=== PATIENT | male | born 1955 | race Caucasian/White ===

== ENCOUNTER 2017-04-28 14:07 | Emergency (ER) | payer OTHER ==
[~2017-04-28] VITALS: Ht 180.3 cm; Wt 79.4 kg
[2017-04-28 14:26] VITALS: BP_SYST 124
[2017-04-28] MEDS ORDERED: KETOROLAC TROMETHAMINE 60 MG/2 ML VIAL IM ONE (15:30)
--- NOTE | 2017-04-28 15:49 | NUR ---
Patient to ER bed H2 to gown for evaluation. Side rails up. Report given to Blanka NASCIMENTO.
--- NOTE | 2017-04-28 15:51 | NUR ---
DEEPA Bowman at bedside examining patient.
--- NOTE | 2017-04-28 15:52 | NUR ---
Note [email or web address] in EDM - 04/28/17 at 1626 by [email or web address] Patient is A & O x 4. Patient reports slipping in shower 4 days ago. complaining of pain to right rib pain. 06/10
--- NOTE | 2017-04-28 15:52 | NUR ---
Patient is A & O x 4. Patient reports slipping in shower 4 days ago. complaining of pain to right rib pain. Pain 10/10, sharp. Denies LOC, SOB or chest pain. No other complaints/injuries per patient or as noted. Will continue to monitor.
[2017-04-28 16:05] VITALS: BP_SYST 124
--- NOTE | 2017-04-28 16:05 | NUR ---
Patient given written and verbal discharge instructions and verbalizes understanding. ER MD discussed with patient the results and treatment provided. Patient in stable condition. ID arm band removed. Rx of Tramadol and ibuprofen given. Patient educated on pain management and to follow up with PMD. Pain Scale 0/10 Opportunity for questions provided and answered.
== END 2017-04-28 16:05 | disposition home or self-care (01) ==
LOC: SED 14:07
DX: S22.41XA Multiple fractures of ribs, right side, initial encounter for closed fracture (principal); F17.210 Nicotine dependence, cigarettes, uncomplicated; R03.0 Elevated blood-pressure reading, without diagnosis of hypertension; Z71.6 Tobacco abuse counseling; W18.2XXA Fall in (into) shower or empty bathtub, initial encounter; Y93.E1 Activity, personal bathing and showering; Y92.091 Bathroom in other non-institutional residence as the place of occurrence of the external cause; Y99.8 Other external cause status
CPT/HCPCS: 71010; 71100; 96372; 99284; J1885

== ENCOUNTER 2018-06-22 14:58 | Inpatient (IN) | payer MEDICAID, OTHER ==
[~2018-06-22] VITALS: Ht 180.3 cm; Wt 86.2 kg
[2018-06-22 15:14] VITALS: BP_SYST 140
[2018-06-22] MEDS ORDERED: CLINDAMYCIN 600 mg/50mL D5W 50 ML IV ONE (16:00)
[2018-06-22] MEDS ORDERED: cefTRIAXone 1 GM IVPB PREMIX 50 ML IV ONE (16:00)
[2018-06-22 16:10] LABS: CALCIUM 9.3 mg/dL (8.4-11.0); CREATININE 0.82 mg/dL (0.55-1.30); POTASSIUM 3.9 mmol/L (3.5-5.1)
[2018-06-22 16:15] LABS: ALBUMIN 3.8 g/dL (3.4-4.8); TOTAL BILIRUBIN 0.4 mg/dL (0.0-1.0)
[2018-06-22] MEDS ORDERED: MORPHINE 4 MG/ML INJ. SYRINGE IVP ONE (16:15)
[2018-06-22 16:20] LABS: BASOPHILS # (AUTO) 0.2 K/uL (0.0-0.2); HEMATOCRIT 47.7 % (36-54); HEMOGLOBIN 16.2 g/dL (14.0-18.0); LYMPHOCYTES # (AUTO) 2.6 K/uL (1.0-5.5); MEAN CORPUSCULAR HEMOGLOBIN 30 pg (27-31); MEAN CORPUSCULAR HGB CONC 34 % (32-36); MEAN CORPUSCULAR VOLUME 89 fL (79.0-98.0); MONOCYTES # (AUTO) 0.7 K/uL (0.0-1.0); MONOCYTES % (AUTO) 7.8 % (1.7-9.3); PLATELET COUNT (AUTO) 250 K/uL (130-430); RED BLOOD CELL COUNT(AUTO) 5.39 MIL/uL (4.2-6.2); RED CELL DISTRIBUTION WIDTH 13.1 % (9.0-15.0); WHITE BLOOD COUNT (AUTO) 9.2 K/uL (4.8-10.8)
[2018-06-22 16:29] LABS: BASOPHILS % (AUTO) 1.7 % (0.0-2.0); LYMPHOCYTES % (AUTO) 27.4 % (20.5-51.5); NEUTROPHILS # (AUTO) 5.6 K/uL (1.8-7.7); NEUTROPHILS % (AUTO) 59.1 % (40.0-70.0)
[2018-06-22 16:30] LABS: EOSINOPHILS # (AUTO) 0.4 K/uL (0.0-0.4)
[2018-06-22] MEDS ORDERED: MORPHINE 2 MG/ML INJ. SYRINGE IVP ONE ×2 (17:00→17:30)
[2018-06-22 19:06] VITALS: BP_SYST 138
[2018-06-22] MEDS ORDERED: VANCOMYCIN HCL 500 MG/VIAL IV ONE (20:05)
[2018-06-22] MEDS ORDERED: VANCOMYCIN HCL 1000 MG/VIAL IV ONE (20:05)
[2018-06-22] MEDS: VANCOMYCIN HCL 1,250 MG in NS 250 ML IV SCH (20:50)
[2018-06-22] MEDS ORDERED: ACETAMINOPHEN 325 MG TABLET PO PRN (22:15)
[2018-06-22] MEDS: MORPHINE 4 MG/ML INJ. SYRINGE IVP PRN (22:32)
[2018-06-23 01:41] VITALS: BP_SYST 119
[2018-06-23] MEDS: MORPHINE 4 MG/ML INJ. SYRINGE IVP PRN ×2 (03:41→21:14)
[2018-06-23 08:00] VITALS: BP_SYST 147
[2018-06-23] MEDS: VANCOMYCIN HCL 1,250 MG in NS 250 ML IV SCH ×2 (09:27→21:04)
[2018-06-23] MEDS: MORPHINE 2 MG/ML INJ. SYRINGE IVP PRN ×2 (10:25→17:17)
[2018-06-23 12:00] VITALS: BP_SYST 146
[2018-06-23 16:00] VITALS: BP_SYST 154
[2018-06-23 19:44] VITALS: BP_SYST 149
[2018-06-24] VITALS (7 sets, daily range): BP systolic 129–161
[2018-06-24] MEDS: MORPHINE 4 MG/ML INJ. SYRINGE IVP PRN ×5 (01:30→21:10)
[2018-06-24] MEDS: VANCOMYCIN HCL 1,250 MG in NS 250 ML IV SCH (08:41)
[2018-06-24] MEDS: CEFEPIME 1 GM in D5W 50 ML IV SCH (20:08)
[2018-06-24] MEDS: VANCOMYCIN HCL 1,500 MG in NS 250 ML IV SCH (20:53)
[2018-06-25] MEDS: MORPHINE 4 MG/ML INJ. SYRINGE IVP PRN ×4 (01:18→16:43)
[2018-06-25 07:57] VITALS: BP_SYST 131
[2018-06-25] MEDS: CEFEPIME 1 GM in D5W 50 ML IV SCH ×2 (09:20→20:01)
[2018-06-25] MEDS: VANCOMYCIN HCL 1,500 MG in NS 250 ML IV SCH ×2 (09:30→20:52)
[2018-06-25 20:00] VITALS: BP_SYST 123
[2018-06-25] MEDS: MORPHINE 2 MG/ML INJ. SYRINGE IVP PRN (20:53)
[2018-06-26 00:31] VITALS: BP_SYST 142
[2018-06-26] MEDS: MORPHINE 4 MG/ML INJ. SYRINGE IVP PRN ×2 (03:52→21:04)
[2018-06-26 08:13] VITALS: BP_SYST 162
[2018-06-26] MEDS: CEFEPIME 1 GM in D5W 50 ML IV SCH ×2 (08:31→20:40)
[2018-06-26] MEDS: VANCOMYCIN HCL 1,500 MG in NS 250 ML IV SCH ×2 (09:22→22:04)
[2018-06-26 12:32] VITALS: BP_SYST 105
[2018-06-26] MEDS: MORPHINE 2 MG/ML INJ. SYRINGE IVP PRN (16:20)
[2018-06-26 17:01] VITALS: BP_SYST 149
[2018-06-26 20:00] VITALS: BP_SYST 130
[2018-06-27] VITALS (7 sets, daily range): BP systolic 109–140
[2018-06-27] MEDS: MORPHINE 2 MG/ML INJ. SYRINGE IVP PRN (00:02)
[2018-06-27] MEDS: MORPHINE 4 MG/ML INJ. SYRINGE IVP PRN ×5 (03:41→21:15)
[2018-06-27 07:19] LABS: CALCIUM 9.4 mg/dL (8.4-11.0); CREATININE 0.81 mg/dL (0.55-1.30); VANCOMYCIN,TROUGH 15.5 ug/mL (5.0-10.0)
[2018-06-27] MEDS: VANCOMYCIN HCL 1,500 MG in NS 250 ML IV SCH ×2 (08:35→21:13)
[2018-06-27] MEDS: CEFEPIME 1 GM in D5W 50 ML IV SCH ×2 (10:18→20:23)
[2018-06-28] MEDS: MORPHINE 4 MG/ML INJ. SYRINGE IVP PRN ×5 (03:09→21:43)
[2018-06-28 05:36] LABS: BASOPHILS # (AUTO) 0.1 K/uL (0.0-0.2); BASOPHILS % (AUTO) 0.8 % (0.0-2.0); EOSINOPHILS # (AUTO) 0.5 K/uL (0.0-0.4); EOSINOPHILS % (AUTO) 4.5 % (0.0-4.0); HEMATOCRIT 53.2 % (36-54); HEMOGLOBIN 17.5 g/dL (14.0-18.0); LYMPHOCYTES # (AUTO) 3.1 K/uL (1.0-5.5); LYMPHOCYTES % (AUTO) 30.6 % (20.5-51.5); MEAN CORPUSCULAR HEMOGLOBIN 30 pg (27-31); MEAN CORPUSCULAR HGB CONC 33 % (32-36); MEAN CORPUSCULAR VOLUME 91 fL (79.0-98.0); MONOCYTES # (AUTO) 1.1 K/uL (0.0-1.0); MONOCYTES % (AUTO) 10.4 % (1.7-9.3); NEUTROPHILS # (AUTO) 5.4 K/uL (1.8-7.7); NEUTROPHILS % (AUTO) 53.7 % (40.0-70.0); PLATELET COUNT (AUTO) 258 K/uL (130-430); RED BLOOD CELL COUNT(AUTO) 5.82 MIL/uL (4.2-6.2); RED CELL DISTRIBUTION WIDTH 12.8 % (9.0-15.0); WHITE BLOOD COUNT (AUTO) 10.2 K/uL (4.8-10.8)
[2018-06-28 05:59] LABS: ALBUMIN 3.9 g/dL (3.4-4.8); CALCIUM 9.6 mg/dL (8.4-11.0); CREATININE 0.85 mg/dL (0.55-1.30); TOTAL BILIRUBIN 0.7 mg/dL (0.0-1.0)
[2018-06-28 08:00] VITALS: BP_SYST 131
[2018-06-28] MEDS: CEFEPIME 1 GM in D5W 50 ML IV SCH ×2 (08:04→20:18)
[2018-06-28] MEDS: VANCOMYCIN HCL 1,500 MG in NS 250 ML IV SCH ×2 (09:01→21:42)
[2018-06-28 12:13] VITALS: BP_SYST 146
[2018-06-28 16:03] VITALS: BP_SYST 109
[2018-06-28 20:00] VITALS: BP_SYST 135
[2018-06-28] MEDS: MORPHINE 2 MG/ML INJ. SYRINGE IVP PRN (23:52)
[2018-06-29 01:45] VITALS: BP_SYST 109
[2018-06-29] MEDS: MORPHINE 4 MG/ML INJ. SYRINGE IVP PRN ×4 (05:34→20:15)
[2018-06-29 08:02] VITALS: BP_SYST 129
[2018-06-29] MEDS: CEFEPIME 1 GM in D5W 50 ML IV SCH (08:51)
[2018-06-29] MEDS: VANCOMYCIN HCL 1,500 MG in NS 250 ML IV SCH (09:25)
[2018-06-29] MEDS ORDERED: DIATR MEGLU/DIATRIZ SOD 30 ML SOLUTION PO ONE (11:13)
[2018-06-29 12:02] VITALS: BP_SYST 131
[2018-06-29] MEDS ORDERED: IOHEXOL 100 ML IV ONE (14:55)
[2018-06-29 16:02] VITALS: BP_SYST 123
[2018-06-29 20:00] VITALS: BP_SYST 129
[2018-06-29] MEDS: DOXYCYCLINE HYCLATE 100 MG CAPSULE PO SCH (20:13)
[2018-06-30 00:10] VITALS: BP_SYST 146
[2018-06-30] MEDS: MORPHINE 4 MG/ML INJ. SYRINGE IVP PRN ×3 (00:25→10:02)
[2018-06-30 08:00] VITALS: BP_SYST 142
[2018-06-30] MEDS: DOXYCYCLINE HYCLATE 100 MG CAPSULE PO SCH (08:13)
[2018-06-30] MEDS ORDERED: DOXY100C PO (09:47)
[2018-06-30 10:43] VITALS: BP_SYST 131
== END 2018-06-30 11:10 | disposition home or self-care (01) | DRG 383 ==
LOC: SED 14:58 → SMU 18:40 → STU 06-23 18:57
PROVIDERS: ADMIT Internal Medicine Hospice and Palliative Medicine; ATTEND Internal Medicine Hospice and Palliative Medicine
DX: L03.116 Cellulitis of left lower limb (principal); I73.9 Peripheral vascular disease, unspecified; F17.200 Nicotine dependence, unspecified, uncomplicated; Z88.0 Allergy status to penicillin; F17.210 Nicotine dependence, cigarettes, uncomplicated; Z79.899 Other long term (current) drug therapy
CPT/HCPCS: 36415; 76870-TC; 80048; 80053; 80202-TC; 83605; 84484; 85025; 85379; 87040-TC; 93005; 93923; 96365; 96367; 96375; 96376; 99285; J0692; J0696; J2270; J3370; J3490; J7050; J7060; Q9964; Q9967